=== PATIENT | female | born 1990 | race African-American/Black ===

== ENCOUNTER 2016-04-30 15:16 | Emergency (ER) | payer OTHER ==
[~2016-04-30] VITALS: Ht 165.1 cm; Wt 81.7 kg
[~2016-04-30 15:16] MED LIST: BACTRIM DS TAB1 EACH PO; COLACE100 MG PO; FLAGYL500 MG; MIRALAX17 GM PO; MUPIROCIN1 GM TP; ONDANSETRON HCL4 M2 PO
[2016-04-30 15:57] LABS: URINE BILIRUBIN NEGATIVE (Negative); URINE BLOOD TRACE (Negative); URINE COLOR YELLOW; URINE GLUCOSE-RANDOM* NEGATIVE (Negative); URINE KETONES 1+ (Negative); URINE LEUKOCYTES-REFLEX NEGATIVE (Negative); URINE PROTEIN (DIPSTICK) TRACE (Negative); URINE SPECIFIC GRAVITY 1.025 (1.003-1.035); URINE UROBILINOGEN 0.2 E.U./dl (0.2-1.0)
[2016-04-30] MEDS ORDERED: TRINATE TABLET1 TAB PO (16:12)
[2016-04-30 16:33] VITALS: BP 112/79
== END 2016-04-30 16:33 | disposition home or self-care (01) ==
LOC: ER 15:16
PROVIDERS: Physician Assistant
DX: Z32.01 Encounter for pregnancy test, result positive (principal); R10.30 Lower abdominal pain, unspecified; F10.99 Alcohol use, unspecified with unspecified alcohol-induced disorder

== ENCOUNTER 2016-05-05 12:22 | Emergency (ER) | payer OTHER ==
[~2016-05-05] VITALS: Ht 160 cm; Wt 61.2 kg
[~2016-05-05 12:22] MED LIST changes: +TRINATE TABLET1 TAB PO
[2016-05-05 14:33] LABS: URINE BILIRUBIN NEGATIVE (Negative); URINE BLOOD TRACE (Negative); URINE COLOR YELLOW; URINE GLUCOSE-RANDOM* NEGATIVE (Negative); URINE KETONES 2+ (Negative); URINE NITRITE NEGATIVE (Negative); URINE PROTEIN (DIPSTICK) NEGATIVE (Negative); URINE SPECIFIC GRAVITY 1.015 (1.003-1.035); URINE UROBILINOGEN 0.2 E.U./dl (0.2-1.0)
[2016-05-05 16:32] VITALS: BP 101/57
[2016-05-08 17:10] LABS: CHLAMYDIA TRACHOMATIS-PCR Negative (Negative); NEISSERIA GONORRHEA-PCR Negative (Negative)
== END 2016-05-05 16:36 | disposition home or self-care (01) ==
LOC: ER 12:22
PROVIDERS: Nurse Practitioner Family
DX: O9A.211 Injury, poisoning and certain other consequences of external causes complicating pregnancy, first trimester (principal); Z3A.00 Weeks of gestation of pregnancy not specified; O20.0 Threatened abortion; S40.022A Contusion of left upper arm, initial encounter; S30.0XXA Contusion of lower back and pelvis, initial encounter; F10.99 Alcohol use, unspecified with unspecified alcohol-induced disorder; Y04.2XXA Assault by strike against or bumped into by another person, initial encounter

== ENCOUNTER 2017-07-10 22:27 | Emergency (ER) | payer OTHER ==
[~2017-07-10] VITALS: Ht 165.1 cm; Wt 75.3 kg
[2017-07-10 23:05] LABS: URINE BILIRUBIN NEGATIVE (Negative); URINE BLOOD TRACE (Negative); URINE CLARITY CLEAR; URINE COLOR YELLOW; URINE GLUCOSE-RANDOM* NEGATIVE (Negative); URINE KETONES NEGATIVE (Negative); URINE LEUKOCYTES-REFLEX NEGATIVE (Negative); URINE NITRITE-REFLEX NEGATIVE (Negative); URINE PROTEIN (DIPSTICK) NEGATIVE (Negative); URINE SPECIFIC GRAVITY 1.015 (1.005-1.035); URINE UROBILINOGEN 0.2 E.U./dl (0.2-1.0)
[2017-07-10] MEDS ORDERED: NAPROSYN500 MG PO (23:08)
[2017-07-10] MEDS ORDERED: ZOFRAN ODT8 MG PO (23:08)
[2017-07-10] MEDS ORDERED: BUSPIRONE HCL10 MG PO (23:09)
== END 2017-07-10 23:38 | disposition home or self-care (01) ==
LOC: ER 22:27
PROVIDERS: Emergency Medicine
DX: M54.5 Low back pain (principal)

== ENCOUNTER 2017-08-22 16:36 | Emergency (ER) | payer OTHER ==
[~2017-08-22] VITALS: Ht 167.6 cm; Wt 74.8 kg
[~2017-08-22 16:36] MED LIST changes: +BUSPIRONE HCL10 MG PO; +NAPROSYN500 MG PO; +ZOFRAN ODT8 MG PO
[2017-08-22 17:16] LABS: URINE BILIRUBIN NEGATIVE (Negative); URINE BLOOD TRACE (Negative); URINE CLARITY CLEAR; URINE COLOR YELLOW; URINE GLUCOSE-RANDOM* NEGATIVE (Negative); URINE KETONES NEGATIVE (Negative); URINE LEUKOCYTES-REFLEX NEGATIVE (Negative); URINE NITRITE-REFLEX NEGATIVE (Negative); URINE PROTEIN (DIPSTICK) NEGATIVE (Negative); URINE SPECIFIC GRAVITY 1.015 (1.005-1.035); URINE UROBILINOGEN 0.2 E.U./dl (0.2-1.0)
[2017-08-22] MEDS ORDERED: DICLEGIS DR 101 EACH PO (17:21)
[2017-08-22 17:52] LABS: ABSOLUTE NEUTROPHILS 7.3 thou/uL (1.4-8.2); BASOPHILS 0.7 % (0.0-2.0); EOSINOPHILS 1.1 % (0.0-3.0); HEMATOCRIT 34.2 % (37.0-47.0); HEMOGLOBIN 11.3 gm/dL (12.0-15.0); LYMPHOCYTES 33.4 % (24.0-44.0); MCH 27.1 pg (26.0-34.0); MCV 82.1 fL (80.0-100.0); MONOCYTES 6.2 % (1.0-8.0); PLATELET COUNT 272 thou/uL (150-400); POLYS 58.6 % (36.0-66.0); RBC 4.17 mil/uL (4.20-5.00); RDW 13.9 % (10.5-14.5); WBC 12.5 thou/uL (4.0-11.0)
[2017-08-22 17:59] LABS: CALCIUM 9.2 mg/dL (8.5-10.1); CREATININE 0.6 mg/dL (0.6-1.0); POTASSIUM 3.7 mmol/L (3.5-5.1)
[2017-08-22 20:38] VITALS: BP 116/64
[2017-08-23 14:12] LABS: NEISSERIA GONORRHEA-PCR Negative (Negative)
== END 2017-08-22 20:39 | disposition home or self-care (01) ==
LOC: ER 16:36
PROVIDERS: Physician Assistant
DX: O26.891 Other specified pregnancy related conditions, first trimester (principal); Z3A.01 Less than 8 weeks gestation of pregnancy; R10.2 Pelvic and perineal pain